=== PATIENT | male | born 1990 | race Caucasian/White ===

== ENCOUNTER 2017-01-07 09:44 | Emergency (ER) | payer MEDICAID ==
[2017-01-07 10:11] LABS: BASOPHILS 0.6 % (0-2); EOSINOPHILS 3.6 % (0-7); HEMATOCRIT 48.5 % (42.0-54.0); IMMATURE GRANULOCYTES 0.2 % (0-5); LYMPHOCYTES 41.1 % (15-50); MCH 31.5 pg (26.0-34.0); MCHC 35.1 g/dL (31.0-37.0); MONOCYTES 7.7 % (2-11); NEUTROPHILS 46.8 % (40-80); PLATELET COUNT 280 10x3/uL (130-400); RBC 5.39 10x6/uL (4.20-6.10); RDW 12.8 % (11.5-14.5); WBC 5.1 10x3/uL (4.8-10.8)
[2017-01-07 10:33] LABS: ALBUMIN 4.5 g/dL (3.4-5.0); ALKALINE PHOSPHATASE 82 U/L (46-116); ALT (SGPT) 23 U/L (10-68); BILIRUBIN - TOTAL 0.52 mg/dL (0.2-1.3); CALC OSMOLALITY 273 mosm/kg (275-300); CALCIUM 9.4 mg/dL (8.5-10.1); CARBON DIOXIDE 29.2 mmol/L (21.0-32.0); CHLORIDE - SERUM 102 mmol/L (98-107); GLUCOSE 105 mg/dL (74-106); PROTEIN - SERUM 7.8 g/dL (6.4-8.2); SODIUM 137 mmol/L (136-145); UREA NITROGEN 13 mg/dL (7-18); eGFR NON AFRICAN AMERICAN > 90 mL/min (90-120)
[2017-01-07 10:45] LABS: CKMB 0.2 U/L (0.0-3.6); CREATINE KINASE 93 UL (21-232)
[2017-01-07 11:02] LABS: TROPONIN-I < 0.017 ng/mL (0.000-0.060)
== END 2017-01-07 11:40 | disposition home or self-care (01) ==
LOC: D.ER 09:44
PROVIDERS: Emergency Medicine; Nurse Practitioner Family
DX: B34.9 Viral infection, unspecified (principal); R11.2 Nausea with vomiting, unspecified; F17.200 Nicotine dependence, unspecified, uncomplicated